=== PATIENT | male | born 1970 | race Two or more races ===

== ENCOUNTER 2025-07-23 18:26 | Emergency (ER) | payer OTHER ==
[~2025-07-23] VITALS: Ht 180.3 cm; Wt 105.7 kg
[2025-07-23 21:46] VITALS: BP 149/85; O2SAT 98
[2025-07-23] MEDS ORDERED: ORPHENADRINE CITRATE 30 MG/ML AMPUL IM ONE (22:30)
[2025-07-23] MEDS ORDERED: ACETAMINOPHEN 500 MG GEL..CAP PO ONE (22:30)
[2025-07-23] MEDS ORDERED: DEXAMETHASONE SODIUM PHOSPHATE 4 MG/ML VIAL IM ONE (22:30)
[2025-07-24 01:37] LABS: BASO % 0.4 % (0.1-1.2); EOS # 0.31 (0.04-0.54); EOS % 3.8 % (0.7-7.0); LYMPH # 3.89 (1.18-3.74); LYMPH % 48.1 % (19.3-53.1); MEAN PLATELET VOLUME 9.40 fl (9.4-12.4); MONO # 0.88 (0.24-0.82); MONO % 10.9 % (4.7-12.5); NEUT # 2.95 (1.56-6.13); NEUT % 36.6 % (34.0-71.1); RED CELL DISTRIBUTION WIDTH 14.7 % (11.6-14.4)
[2025-07-24 02:39] LABS: ALT/SGPT 61.0 U/L (12-78); AST/SGOT 50.0 U/L (15-37); BILIRUBIN TOTAL 0.23 mg/dL (0.3-1.2); BUN CREA RATIO 20.0 (7.0-25.0); CREATININE SERUM 0.71 mg/dL (0.70-1.30); GFR 116.05; GLOBULINA 3.9 G/DL (2.4-3.5); GLUCOSE FASTING 100.0 mg/dL (65-100); OSMOLALITY SERUM 284.0 MOSM/KG (275-295)
== END 2025-07-24 04:00 | disposition home or self-care (01) ==
LOC: ER 18:26
PROVIDERS: Student in an Organized Health Care Education/Training Program
DX: M94.0 Chondrocostal junction syndrome [Tietze] (principal); J45.909 Unspecified asthma, uncomplicated; R51.9 Headache, unspecified; M62.838 Other muscle spasm